=== PATIENT | male | born 1995 | race Caucasian/White ===

== ENCOUNTER 2017-08-13 09:18 | Emergency (ER) | payer BC ==
[~2017-08-13] VITALS: Ht 182.9 cm
[2017-08-13 09:22] VITALS: Ht 182.9 cm
[2017-08-13] MEDS ORDERED: SODIUM CHLORIDE 0.9% 1000ML 1,000 ML IV STA (09:56)
[2017-08-13] MEDS ORDERED: IBUPROFEN 600 MG TAB PO STA (09:56)
[2017-08-13 10:15] LABS: BASO % 0.1 %; BASO ABS # 0.01 K/uL (0-0.2); EOS % 0.3 %; EOS ABS # 0.03 K/uL (0-0.5); HEMATOCRIT 45.7 % (42-52); IG# 0.03 K/uL (0.00-0.02); LYMPH % 9.7 %; LYMPH ABS # 0.84 K/uL (1.2-3.4); MEAN CELL VOLUME 93.1 fL (80-100); MEAN CORPUSCULAR HEMOGLOBIN 32.6 pg (25-34); MONO ABS # 0.52 K/uL (0.11-0.59); NEUT % 83.6 %; NEUT ABS # 7.22 K/uL (1.4-6.5); PLATELET COUNT 164 K/uL (130-400); RED CELL DISTRIBUTION WIDTH CV 12.1 % (11.5-14.5); RED CELL DISTRIBUTION WIDTH SD 41.3 fL (36.4-46.3); WHITE BLOOD COUNT 8.65 K/uL (4.8-10.8)
[2017-08-13 10:31] LABS: BLOOD UREA NITROGEN 14 mg/dl (7-18); CALCIUM 8.9 mg/dl (8.5-10.1); CARBON DIOXIDE 28 mmol/L (21-32); CREATININE 1.47 mg/dl (0.60-1.40); GLUCOSE 109 mg/dl (70-99); POTASSIUM 4.3 mmol/L (3.5-5.1); SODIUM 134 mmol/L (136-145)
--- NOTE | 2017-08-13 10:52 | DIAGNOSTIC IMAGING REPORT ---
CHEST 2 VIEWS ROUTINE CLINICAL HISTORY: Fever, sore throat. Difficulty breathing. COMPARISON STUDY: No previous studies for comparison. FINDINGS: The heart is normal in size. There are patchy airspace opacities within the left lower lobe, suspicious for pneumonia. The right lung is clear. There are no pleural effusions. There is no failure.[ IMPRESSION: Patchy left lower lobe airspace opacity suspicious for pneumonia. Imaging subsequent to treatment is recommended in follow-up Electronically signed by: Rodo Russell M.D. 08/13/2017 10:51 AM Dictated Date/Time: 08/13/2017 10:50 AM
[2017-08-13 11:26] LABS: INFLUENZA B ANTIGEN Neg for Influ B (NEG)
[2017-08-13] MEDS ORDERED: LEVAQUIN 750MG / 150ML D5W IV STA (11:38)
[2017-08-13] MEDS ORDERED: LEVO750T23 PO (12:49)
[2017-08-13 13:30] VITALS: BP 120/56; PULSE 78; TEMP 36.9; O2SAT 97
--- NOTE | 2017-08-13 15:49 | EMERGENCY ROOM VISIT NOTE ---
History Report prepared by Rachel: Andi Murry Under the Supervision of: Dr. Dean Becker M.D. First contact with patient: 09:48 Chief Complaint: FLU LIKE SX Stated Complaint: FEVER, SORE THROAT, ISSUES BREATHING History of Present Illness The patient is a 21 year old male who presents to the Emergency Room with complaints of persistent generalized illness beginning eight days ago. His symptoms began with vomiting and diarrhea. He now complains of fevers, coughing , body aches, and sore throat. The patient's fever peaked at 104 degrees this morning. He took Tylenol for his symptoms this morning. His cough is non- productive and causes him to feel short of breath. The patient's diarrhea has improved, and his vomiting has resolved. He notes that he had some "burning" pain in his chest during the middle of the night last night which quickly resolved. He did not have a flu-shot this year. The patient states that he feels dehydrated, but otherwise denies urinary symptoms. He denies leg pain or swelling. Source of History: patient Onset: Eight days ago Position: other (generalized) Quality: other (illness) Timing: other (persistent) Associated Symptoms: + fevers (104 degrees today ), + sorethroat, + cough ( non-productive), + chest pain ("burning", last night), + SOB (with coughing), + vomiting (resolved), + diarrhea (improving), No urinary symptoms Note: Additional symptoms: body aches. He denies leg pain or swelling. Review of Systems See HPI for pertinent positives & negatives. A total of 10 systems reviewed and were otherwise negative. Past Medical & Surgical Medical Problems: (1) No Known Active Medical Problems Family History No pertinent family history stated. Social History Smoking Status: Never Smoker Housing Status: lives with family Current/Historical Medications Scheduled Levofloxacin (Levaquin), 1 TAB PO DAILY Allergies Coded Allergies: Penicillins (Unverified Allergy, Unknown, ., 08/13/17) Physical Exam Vital Signs Date Time Temp Pulse Resp B/P (MAP) Pulse Ox O2 Delivery O2 Flow Rate FiO2 08/13/17 13:30 36.9 78 16 120/56 97 08/13/17 12:57 72 08/13/17 12:49 36.9 76 16 122/58 98 Room Air 08/13/17 12:49 36.9 08/13/17 11:15 37.2 08/13/17 10:26 81 18 139/59 98 Room Air 08/13/17 10:01 81 08/13/17 09:22 38.0 82 20 134/69 95 Room Air Physical Exam Constitutional: Vital signs reviewed. Eyes: Pupils are equal round reactive to light. Conjunctiva are noninjected. ENT: Pharynx is clear without erythema or exudate. Mucous membranes are moist. Neck supple without meningeal signs. Respiratory: Crackles at the left base. Breath sounds are equal bilaterally. Cardiovascular: Regular rate and rhythm. No rubs or gallops. GI: Soft, nondistended and nontender. Bowel sounds are present. Musculoskeletal: No peripheral edema. No lower extremity tenderness. Integumentary: No cyanosis. Neurological: The patient is awake and alert. No focal deficits. Psychiatric: Normal affect. Medical Decision & Procedures ER Provider Diagnostic Interpretation: Radiology results as stated below per my review and the radiologist's interpretation: CHEST 2 VIEWS ROUTINE FINDINGS: The heart is normal in size. There are patchy airspace opacities within the left lower lobe, suspicious for pneumonia. The right lung is clear. There are no pleural effusions. There is no failure.[ IMPRESSION: Patchy left lower lobe airspace opacity suspicious for pneumonia. Imaging subsequent to treatment is recommended in follow-up Electronically signed by: Rodo Russell M.D. 08/13/2017 10:51 AM Laboratory Results 08/13/17 09:57 Red Blood Count 4.91, Mean Corpuscular Volume 93.1, Mean Corpuscular Hemoglobin 32.6, Mean Corpuscular Hemoglobin Concent 35.0, Mean Platelet Volume 10.0, Neutrophils (%) (Auto) 83.6, Lymphocytes (%) (Auto) 9.7, Monocytes (%) (Auto) 6.0, Eosinophils (%) (Auto) 0.3, Basophils (%) (Auto) 0.1, Neutrophils # (Auto) 7.22, Lymphocytes # (Auto) 0.84, Monocytes # (Auto) 0.52, Eosinophils # (Auto) 0.03, Basophils # (Auto) 0.01 08/13/17 09:57 Test 08/13/17 09:57 08/13/17 10:20 White Blood Count 8.65 K/uL (4.8-10.8) Red Blood Count 4.91 M/uL (4.7-6.1) Hemoglobin 16.0 g/dL (14.0-18.0) Hematocrit 45.7 % (42-52) Mean Corpuscular Volume 93.1 fL (80-100) Mean Corpuscular Hemoglobin 32.6 pg (25-34) Mean Corpuscular Hemoglobin Concent 35.0 g/dl (32-36) Platelet Count 164 K/uL (130-400) Mean Platelet Volume 10.0 fL (7.4-10.4) Neutrophils (%) (Auto) 83.6 % Lymphocytes (%) (Auto) 9.7 % Monocytes (%) (Auto) 6.0 % Eosinophils (%) (Auto) 0.3 % Basophils (%) (Auto) 0.1 % Neutrophils # (Auto) 7.22 K/uL (1.4-6.5) Lymphocytes # (Auto) 0.84 K/uL (1.2-3.4) Monocytes # (Auto) 0.52 K/uL (0.11-0.59) Eosinophils # (Auto) 0.03 K/uL (0-0.5) Basophils # (Auto) 0.01 K/uL (0-0.2) RDW Standard Deviation 41.3 fL (36.4-46.3) RDW Coefficient of Variation 12.1 % (11.5-14.5) Immature Granulocyte % (Auto) 0.3 % Immature Granulocyte # (Auto) 0.03 K/uL (0.00-0.02) Anion Gap 8.0 mmol/L (3-11) Estimated GFR () 77.9 Estimated GFR (Non- 67.2 BUN/Creatinine Ratio 9.7 (10-20) Calcium Level 8.9 mg/dl (8.5-10.1) Influenza Type A Antigen POS for Influ A (NEG) Influenza Type B Antigen Neg for Influ B (NEG) Laboratory results as reviewed by me. Medications Administered Medications (Trade) Dose Ordered Sig/Khris Route Start Time Stop Time Status Last Admin Dose Admin Ibuprofen (Motrin Tab) 600 mg NOW STAT PO 08/13/17 09:56 08/13/17 09:58 DC 08/13/17 10:20 600 MG Sodium Chloride 1,000 ml @ 999 mls/hr Q1H1M STAT IV 08/13/17 09:56 08/13/17 10:56 DC 08/13/17 10:20 999 MLS/HR Levofloxacin (Levaquin / D5W) 750 mg NOW STAT IV 08/13/17 11:38 08/13/17 11:39 DC 08/13/17 11:46 750 MG ECG Indication: vomiting Rate (beats per minute): 82 Rhythm: normal sinus Findings: no acute ischemic change, other (No signs of pericarditis. ) ED Course 0949: The patient was evaluated in room A10. A complete history and physical exam was performed. 0956: Ordered Sodium Chloride 1000 ml @ 999 mls/hr IV, Motrin Tab 600 mg PO. 1138: Ordered Levaquin / D5w 750 mg IV. 1141: I discussed the patient's test results with him . 1250: Upon reevaluation, the patient appeared to have improvement of his symptoms. I discussed tonight's findings with him. He verbalized agreement of the treatment plan. The patient was discharged home. Medical Decision This is a 21-year-old male presents with flulike symptoms. Differential diagnosis includes influenza, pneumonia, bronchitis, pericarditis, URI. I did perform a limited focused review of portions of the patient's old chart on the electronic medical record. The patient has had no prior visits to this hospital. I did evaluate the patient as noted above. IV access was established. The patient was placed on a continuous education administrator. I did treat him with Motrin. He is also given normal saline IV. I did order and personally review the patient's 12-lead EKG and chest x-ray as described above. He does appear to have a left-sided infiltrate consistent with his physical exam findings. I did order and review the patient's blood work as noted in the electronic medical record. His white blood cell count is not elevated. Creatinine is slightly elevated likely secondary to decreased fluid intake with vomiting and diarrhea. I did order a rapid flu test which was positive for influenza A. I did discuss the test results with the patient. At this time I do not feel Tamiflu is indicated given he has symptoms for 8 days. I did treat him with Levaquin 750 mg IV for his pneumonia. He was discharged with a prescription for Levaquin 750 mg for 6 more days. He was advised follow closely with his doctor. Medication Reconcilliation Current Medication List: was personally reviewed by me Blood Pressure Screening Patient's blood pressure: Elevated blood pressure Blood pressure disposition: Referred to PCP Impression Primary Impression: Influenza A Additional Impressions: Left lower lobe pneumonia Dehydration Scribe Attestation The scribe's documentation has been prepared under my direct and personally reviewed by me in its entirety. I confirm that the note above accurately reflects all work, treatment, procedures, and medical decision making performed by me. Departure Information Dispostion Home / Self-Care Prescriptions Levofloxacin (LEVAQUIN) 750 Mg Tab 1 TAB PO DAILY for 6 Days, #6 TAB Prov: Dean Becker M.D. 08/13/17 Forms HOME CARE DOCUMENTATION FORM, IMPORTANT VISIT INFORMATION Patient Instructions ED Flu, ED Pneumonia Adult, My [facility] Additional Instructions You have been examined and treated today on an emergency basis only. This is not a substitute for, or an effort to provide, complete comprehensive medical care. It is impossible to recognize and treat all injuries or illnesses in a single emergency department visit. It is therefore important that you follow up closely with your physician. Call as soon as possible for an appointment. Return for worsening symptoms or if you develop shortness of breath, vomiting or any other concerning symptoms. Problem Qualifiers Additional Impressions: Left lower lobe pneumonia Pneumonia type: due to unspecified organism Qualified Codes: J18.1 - Lobar pneumonia, unspecified organism
== END 2017-08-13 13:31 | disposition home or self-care (01) ==
LOC: C.EDB 09:21 → EDBD 09:21 → C.EDA 13:31
DX: J11.08 Influenza due to unidentified influenza virus with specified pneumonia (principal); J18.1 Lobar pneumonia, unspecified organism; E86.0 Dehydration